=== PATIENT | female | born 1965 | race Caucasian/White ===

== ENCOUNTER → 2020-06-04 | Outpatient (CLI) | payer MEDICARE, OTHER ==
[~2020-06-04] MED LIST: CYAN1TAB29 PO; FREM225A INJ; MV-M1TAB16 PO; OMEG-76 PO; OMEP20TA62 PO; ONDA4TAB13 SL; VITAMIN B12 PO; Vitamin c PO; ZOLM5TAB34 PO; flaxseed oil PO
== END | disposition home or self-care (01) ==
LOC: STAR 15:39
PROVIDERS: ATTEND Thoracic Surgery (Cardiothoracic Vascular Surgery)
DX: Z01.812 Encounter for preprocedural laboratory examination (principal); Z20.828 Contact with and (suspected) exposure to other viral communicable diseases
CPT/HCPCS: 36415; 87635

== ENCOUNTER 2020-06-09 09:26 | Day surgery (SDC) | payer MEDICARE, OTHER ==
[~2020-06-09] VITALS: Ht 162.6 cm; Wt 71.0 kg
[~2020-06-09 09:26] MED LIST changes: +BUPIVACAINE/PF 0.5% ONE; +EPINEPHRINE 1 MG/ML, 1ML ONE; -VITAMIN B12 PO
[2020-06-09] MEDS ORDERED: LACTATED RINGERS 1,000 ML IV SCH ×2 (10:00→12:00)
[2020-06-09] MEDS ORDERED: CHLORHEXIDINE 15 ML UDC ONE (10:04)
[2020-06-09] MEDS ORDERED: VITAMIN B12 PO (10:25)
[2020-06-09] MEDS ORDERED: CHLORHEXIDINE 15 ML UDC MM ONE (10:30)
[2020-06-09] MEDS ORDERED: MIDAZOLAM 1 MG/ML, 2ML ONE (10:47)
[2020-06-09] MEDS ORDERED: FENTANYL PF 250 MCG/5ML ONE (10:47)
[2020-06-09] MEDS ORDERED: NALOXONE 0.4 MG/ML, 1ML ONE (10:51)
[2020-06-09] MEDS ORDERED: LIDOCAINE-MPF 1%, 2ML ONE (10:51)
[2020-06-09] MEDS ORDERED: PHENYLEPHRINE 10 MG/ML ONE (10:51)
[2020-06-09] MEDS ORDERED: BUPIVACAINE/PF-EPI 0.5% 1:200K INFIL ONE (11:14)
[2020-06-09] MEDS ORDERED: ACETAMINOPHEN 325 MG TABLET PO PRN (11:30)
[2020-06-09] MEDS ORDERED: OXYcodone 5 MG/5 ML ORAL.SOL UDC PO PRN (11:30)
[2020-06-09] MEDS ORDERED: ONDANSETRON 2MG/ML, 2ML IVPush PRN ×2 (11:30→12:00)
[2020-06-09] MEDS ORDERED: HYDROmorphone 1 MG/ML, 1ML INJ IVPush PRN (11:30)
[2020-06-09] MEDS ORDERED: ALBUTEROL SULFATE 2.5 MG/3 ML NPPB PRN (11:30)
[2020-06-09] MEDS ORDERED: FENTANYL PF 100 MCG/2ML IV PRN (11:30)
[2020-06-09] MEDS ORDERED: PROMETHAZINE 25 MG/ML, 1ML IVPush PRN (11:30)
[2020-06-09] MEDS ORDERED: PROMETHAZINE 25 MG SUPP PR PRN (11:30)
[2020-06-09] MEDS ORDERED: KETOROLAC 30 MG/1 ML ONE (11:36)
[2020-06-09] MEDS ORDERED: ONDANSETRON 2MG/ML, 2ML ONE (11:37)
[2020-06-09] MEDS ORDERED: PROPOFOL 10 MG/ML, 20ML ONE (11:37)
[2020-06-09] MEDS ORDERED: NEOSTIGMINE 1 MG/ML, 10ML ONE (11:37)
[2020-06-09] MEDS ORDERED: CEFAZOLIN 1,000 MG ONE (11:37)
[2020-06-09] MEDS ORDERED: GLYCOPYRROLATE 0.2MG/1ML, 5ML ONE (11:37)
[2020-06-09] MEDS ORDERED: DEXAMETHASONE 4 MG/ML, 1ML ONE (11:37)
[2020-06-09] MEDS ORDERED: SUCCINYLCHOLINE 20 MG/ML, 10ML ONE (11:37)
[2020-06-09] MEDS ORDERED: ROCURONIUM 10MG/ML,5ML ONE (11:37)
[2020-06-09] MEDS ORDERED: SUGAMMADEX 200 MG/2 ML IVPush ONE (11:38)
[2020-06-09] MEDS ORDERED: FENTANYL PF 100 MCG/2ML ONE (11:58)
[2020-06-09] MEDS ORDERED: OXYcodone 5 MG/5 ML ORAL.SOL UDC ONE (11:58)
[2020-06-09] MEDS ORDERED: LORazepam 2 MG/ML, 1ML ONE (11:58)
[2020-06-09] MEDS: LORazepam 2 MG/ML, 1ML IVPush PRN ×2 (12:00→12:30)
[2020-06-09] MEDS ORDERED: KETOROLAC 30 MG/1 ML IVPush PRN (12:00)
[2020-06-09] MEDS ORDERED: morphine SULFATE 10 MG/ML, 1ML IVPush PRN (12:00)
[2020-06-09] MEDS ORDERED: HYDROcodone/APAP 7.5-325MG/15ML UDC PO PRN ×2 (12:00)
== END 2020-06-09 16:07 | disposition home or self-care (01) ==
LOC: OUT 09:26
PROVIDERS: ATTEND Thoracic Surgery (Cardiothoracic Vascular Surgery)
DX: K21.9 Gastro-esophageal reflux disease without esophagitis (principal); K44.9 Diaphragmatic hernia without obstruction or gangrene; G43.909 Migraine, unspecified, not intractable, without status migrainosus; M19.90 Unspecified osteoarthritis, unspecified site; Z88.0 Allergy status to penicillin; Z98.890 Other specified postprocedural states; Z79.899 Other long term (current) drug therapy; Z82.49 Family history of ischemic heart disease and other diseases of the circulatory system
CPT/HCPCS: 43281; J0171; J0330; J0690; J1100; J1885; J2060; J2250; J2310; J2370; J2405; J2704; J2710; J3010; J7120